=== PATIENT | female | born 1965 | race Caucasian/White ===

== ENCOUNTER 2020-08-17 15:35 | Emergency (ER) | payer BC, SELFPAY ==
--- NOTE | ~2020-08-17 | CT_ITS ---
EXAMINATION: CT abdomen pelvis wo con DATE: 08/17/2020 22:05 INDICATION: Left flank pain TECHNIQUE: Computed tomography (CT) of the abdomen and pelvis was performed without intravenous contr ast. The dose-length product was 1362.65 mGy-cm. Automated exposure control and iterative reconstruct ion technique were employed. COMPARISON: None. FINDINGS: Lung bases are unremarkable. Heart size is normal. No significant pleural or pericardial ef fusion. No significant vascular abnormality. No lymphadenopathy. No free air or free fluid. Status post cholecystectomy. Fatty infiltration of the liver. The spleen, pancreas, adrenal glands an d right kidney are unremarkable. There is a possible exophytic 1.6 cm left renal mass. Nonobstructive bowel gas pattern. No significan t vascular abnormality. Moderate lumbar spondylosis. There is grade 1 spondylolisthesis at L4-5 secon homar to facet hypertrophy. There are erosive changes at the inferior endplate of L5 which may be due to degenerative change, although no sequela of infection is not excluded. IMPRESSION: 1. No acute abdominal abnormality identified. 2: Possible exophytic 1.6 cm left renal mass. Recommend follow-up contrast-enhanced CT or ultrasound on a nonemergent basis. 3: Erosive changes inferior endplate of L5 which may be degenerative, although sequela of infection i s not excluded. If there is clinical concern for discitis/osteomyelitis, correlation with MRI with co ntrast recommended. 4: Hepatic steatosis. Reviewed, dictated and finalized at location A. RUMENT[employer]TER IMPRESSION: 1. No acute abdominal abnormality identified. 2: Possible exophytic 1.6 cm left renal mass. Recommend follow-up contrast-enha nced CT or ultrasound on a nonemergent basis. 3: Erosive changes inferior endplate of L5 which may be degenerative, although sequela of infection is not excluded. If there is clinical concern for discitis /osteomyelitis, correlation with MRI with contrast recommended. 4: Hepatic steatosis.
[2020-08-17 15:38] VITALS: BP 156/100; PULSE 97; RESP 16; TEMP 35.6; O2SAT 97
[2020-08-17 15:55] LABS: Basophils Absolute Auto 0.1 K/mm3 (0.0-0.1); Basophils Percent Auto 0.6 % (0.2-1.2); Eosinophils Absolute Auto 0.1 K/mm3 (0-0.3); Eosinophils Percent Auto 0.4 % (0-4.4); Hematocrit 44.6 % (37.0-47.0); Hemoglobin 15.5 g/dL (12.0-15.0); Immature Granulocyte Absolute 0.09 K/mm3 (0.00-0.031); Immature Granulocyte Percent A 0.6 % (0-0.5); Lymphocytes Percent Auto 17.5 % (18.3-44.2); Mean Corpuscular HGB Conc 34.8 g/dl (32-36); Mean Corpuscular Hemoglobin 29.8 pg (26-34); Mean Corpuscular Volume 85.6 fl (80-100); Mean Platelet Volume 10.4 fl (7.4-10.4); Monocytes Absolute Auto 0.5 K/mm3 (0.1-0.6); Monocytes Percent Auto 2.9 % (2.6-8.5); Neutrophils Absolute Auto 12.5 K/mm3 (1.3-6.7); Platelet Count Result 306 k/mm3 (150-375); Red Blood Count 5.21 M/mm3 (4.2-5.4); Red Cell Distribution Width 12.7 % (11.5-14.5)
[2020-08-17 16:05] LABS: Anion Gap 9 mmol/L (8-16); Blood Urea Nitrogen 9 mg/dL (7-17); Calcium 9.5 mg/dL (8.4-10.2); Carbon Dioxide 23 mmol/L (22-30); Chloride 101 mmol/L (98-107); Estimated CRCL calculation 150 ml/min; Estimated Glomerular Filt Rate > 60; Glucose 440 mg/dL (65-105); Potassium 3.8 mmol/L (3.4-5.0); Sodium 133 mmol/L (137-145)
[2020-08-17 17:59] VITALS: BP 140/92; PULSE 94; RESP 20; TEMP 35.9; O2SAT 100
--- NOTE | 2020-08-17 20:58 | ED.ABDPAIN ---
HPI - Abdominal Pain General Chief Complaint: Abdominal Pain Stated Complaint: abd pain, N/V Time Seen by Provider: 08/17/20 20:51 Source: patient Mode of arrival: ambulatory Limitations: no limitations History of Present Illness HPI narrative: Patient is a 55-year-old female complaining of left flank pain, sharp, 8 out of 10, nonradiating accompanied by nausea and vomiting that started this afternoon. Patient denies any chest pain, shortness of breath, abdominal pain, diarrhea, urinary symptoms, fever or chills. Patient states that her blood sugar is usually uncontrolled, described as all over the place so high blood sugar for her is nothing new. Related Data Allergies Allergy/AdvReac Type Severity Reaction Status Date / Time guaifenesin Allergy Unknown Unknown Verified 03/01/20 09:10 phenylephrine Allergy Unknown Unknown Verified 03/01/20 09:10 phenylpropanolamine Allergy Unknown Unknown Verified 03/01/20 09:10 DECONGESTANT Allergy Unknown Unknown Uncoded 12/01/19 09:47 Review of Systems Review of Systems: All systems reviewed & are unremarkable except as noted in HPI and below Constitutional: Constitutional: Denies body ache(s), Denies chills, Denies excessive sweating, Denies fatigue, Denies fever(s), Denies headache(s), Denies lethargy, Denies malaise, Denies weakness and Denies weight loss Eyes: Eyes: Denies blurry vision, Denies change in vision and Denies loss of vision ENT: Denies dizziness, Denies ear discharge, Denies headache(s), Denies lip swelling, Denies epistaxis, Denies nasal congestion, Denies neck pain, Denies throat swelling and Denies tongue swelling Cardiovascular: Cardiovascular: Denies chest pain, Denies chest pain at rest, Denies chest pain with activity, Denies diaphoresis, Denies rapid heart rate, Denies edema, Denies irregular heart rhythm, Denies lightheadedness, Denies palpitations, Denies dyspnea and Denies dyspnea on exertion Respiratory: Respiratory: Denies chest congestion, Denies cough, Denies hemoptysis, Denies dyspnea and Denies dyspnea on exertion Gastrointestinal: Gastrointestinal: Denies abdominal pain, Denies melena, Denies hematochezia, Denies diarrhea and Denies hematemesis Musculoskeletal: Musculoskeletal: Denies abnormal gait, Denies deformity, Denies joint swelling, Denies limited range of motion, Denies neck pain and Denies numbness Neurologic: Denies Abnormal speech present, Denies abnormal gait, Denies confusion, Denies dizziness, Denies headache(s), Denies focal weakness, Denies loss of vision, Denies numbness, Denies Other visual disturbances, Denies Sensory deficit (Neuro) and Denies weakness Psychiatric: Psychiatric: Denies confusion, Denies depression, Denies auditory hallucinations, Denies homicidal ideation and Denies suicidal ideation Endocrine: Endocrine: Denies cold intolerance, Denies excessive sweating, Denies fatigue, Denies heat intolerance and Denies palpitations Hematologic/Lymphatic: Hematologic/Lymphatic: Denies easy bleeding and Denies easy bruising Allergic/Immunologic: Allergic/Immunologic: Denies lip swelling, Denies throat swelling and Denies tongue swelling PMFSH Past Medical History Medical History (Updated 08/17/20 @ 23:02 by Adrián Hicks MD) Allergic rhinitis Anxiety Mild episode of recurrent major depressive disorder Mixed hyperlipidemia Type 2 diabetes mellitus without complication, without long-term current use of insulin Vitamin D deficiency Family History Family History Other Asthma Family history of malignant neoplasm of brain Malignant neoplasm of prostate Social History Social History Smoking status: Never smoker Second hand tobacco smoke exposure: No Alcohol intake: current Exam Const: General: cooperative, healthy appearing, comfortable, no acute distress, well developed, alert and awake; No confusion [place]
[2020-08-17] MEDS: KETOROLAC 30 MG/ML VIAL (*BKC) IV PUSH (21:19)
[2020-08-17] MEDS: PROMETHAZINE HCL 25 MG/ML AMPUL 12.5 MG IV PUSH (21:20)
[2020-08-17] MEDS: SODIUM CHLORIDE 0.9% IV 1,000 ML 999 ML IV CONT ×2 (21:20→22:41)
[2020-08-17 21:21] VITALS: BP 167/102; PULSE 107; RESP 20; O2SAT 96
[2020-08-17] MEDS: SODIUM CHLORIDE 0.9% IV 50 ML 300 ML (21:21)
[2020-08-17 22:14] VITALS: BP 169/108; PULSE 113; RESP 18; O2SAT 99
[2020-08-17 22:23] LABS: Add Urine Microscopic? YES; Appearance Urine Clear (Clear); Bilirubin Urine Negative (Negative); Blood Urine Negative (Negative); Color Urine Yellow (Yellow); Glucose Urine UA 3+ mg/dL (Negative); Ketones Urine 1+ mg/dL (Negative); Leukocyte Esterase Ur Negative LEU/UL (Negative); Mucus Urine Rare /lpf; Nitrate Urine Negative (Negative); Protein Urine 1+ mg/dL (Negative); Squamous Epithelial Cell Urine Few /hpf (Few); Urobilinogen Urine Negative mg/dL (<2.0); WBC Urine 0-3 /hpf
[2020-08-17 22:24] LABS: Specific Grav Ur 1.039 (1.001-1.035)
[2020-08-17] MEDS: ONDANSETRON INJ 4 MG/2 ML VIAL IV PUSH (22:41)
[2020-08-17 23:19] LABS: Glucose Point of Care 389 (65-105)
[2020-08-18] MEDS: HYDROcodone/acetaminophen (*CRX) 5-325 MG TABLET 1 TAB PO (00:54)
[2020-08-18 00:59] VITALS: BP 154/78; PULSE 92; RESP 18; O2SAT 100
== END 2020-08-18 01:00 | disposition home or self-care (01) ==
PROVIDERS: Emergency Medicine; Emergency Provider Emergency Medicine; PCP Family Medicine
DX: R10.9 Unspecified abdominal pain (principal); R11.2 Nausea with vomiting, unspecified; E11.65 Type 2 diabetes mellitus with hyperglycemia; E78.2 Mixed hyperlipidemia; E55.9 Vitamin D deficiency, unspecified; K76.0 Fatty (change of) liver, not elsewhere classified; R93.422 Abnormal radiologic findings on diagnostic imaging of left kidney; R93.7 Abnormal findings on diagnostic imaging of other parts of musculoskeletal system
CPT/HCPCS: 36415; 74176; 80048; 81001; 82948; 85025; 96361; 96374; 96375; 99284; A9270; J1885; J2405; J2550; J7030

== ENCOUNTER → 2021-03-10 12:35 | Outpatient (CLI) | payer BC, SELFPAY ==
--- NOTE | ~2021-03-10 | CT_ITS ---
EXAMINATION: CT abdomen pelvis wo/w con DATE: 03/10/2021 13:35 INDICATION: Left kidney mass TECHNIQUE: Computed tomography (CT) of the abdomen and pelvis was performed without intravenous contr ast. CT of the abdomen and pelvis was then performed with a total of 130 mL Omnipaque 350 intravenous contrast using a double-bolus technique for simultaneous opacification of the renal parenchyma and r enal collecting system. The dose-length product (DLP) was 2204.33 mGy-cm. Automated exposure control and iterative reconstruction technique were employed. COMPARISON: None FINDINGS: Minimal dependent atelectasis is present in the lung bases. The heart size is normal. The g allbladder is surgically absent. The liver, spleen, pancreas, and adrenal glands are normal. No stone s are identified in the kidneys, ureters, or bladder. There is no hydronephrosis or hydroureter. Ther e is a stable 1.4 x 0.7 cm exophytic, partially cystic lesion at the lateral aspect of the left kidne y. There is a questionable tiny crescent of peripheral enhancement however this is not definitive. No pathologically enlarged abdominal or pelvic lymph nodes are identified. There is no free intraperito michael gas or evidence of bowel obstruction. There is unchanged severe spondylosis at L5-S1. IMPRESSION: 1. Stable, probably benign cystic lesion of the left kidney. Follow-up CT or MRI without and with con trast in six months is recommended. Reviewed, dictated and finalized at location A. IMPRESSION: 1. Stable, probably benign cystic lesion of the left kidney. Follow-up CT or MR I without and with contrast in six months is recommended.
== END ==
PROVIDERS: PCP Family Medicine; Visit Provider Physician Assistant
DX: N28.9 Disorder of kidney and ureter, unspecified (principal); M47.817 Spondylosis without myelopathy or radiculopathy, lumbosacral region
CPT/HCPCS: 74178; Q9967